=== PATIENT | female | born 1985 | race Caucasian/White ===

== ENCOUNTER 2024-05-23 08:27 | Outpatient (CLI) | payer BC, SELFPAY ==
--- NOTE | ~2024-05-23 | US_ITS ---
EXAMINATION: US thyroid DATE: 05/23/2024 08:42 INDICATION: Nontoxic goiter, unspecified. TECHNIQUE: Multiple ultrasound images of the thyroid were obtained. COMPARISON: None. FINDINGS: The right thyroid lobe measures 5.3 x 2.5 x 1.3 cm. The left thyroid lobe measures 4.8 x 1.9 x 1.8 c m. In the right thyroid lobe, there is a 6 mm solid, hypoechoic, wider than tall nodule with smooth margin without echogenic foci (TI-RADS TR4). In the right thyroid lobe, there is an 8 mm solid, hypoe choic, wider than tall nodule with smooth margin without echogenic foci (TR4). In the left thyroid lo be, there is a 16 mm almost completely cystic nodule (TR1). IMPRESSION: 1. Thyroid nodules, likely not clinically significant. No follow-up is needed. Reviewed, dictated and finalized at location A.
== END 2024-05-23 08:28 ==
LOC: GOSHIMG 08:28
PROVIDERS: PCP Obstetrics & Gynecology; Visit Provider Obstetrics & Gynecology
DX: E04.2 Nontoxic multinodular goiter (principal)
CPT/HCPCS: 76536